=== PATIENT | female | born 1990 | race Caucasian/White ===

== ENCOUNTER → 2016-06-19 | Outpatient (CLI) | payer BC ==
[~2016-06-19] MED LIST: BUPR-79 PO; BUPRTAB51 PO; GADAVIST IV PRN; LEVO50TA PO; LIOT5TAB9 PO; ONDA4TAB7 SL
--- NOTE | 2016-06-19 15:59 | DIAGNOSTIC IMAGING REPORT ---
MRI OF THE BRAIN AND PITUITARY WITHOUT AND WITH GADOLINIUM CLINICAL HISTORY: Galactorrhea, migraine, cognitive impairment, numbness, tingling, memory loss. COMPARISON STUDY: Noncontrast head CT dated to 1010 FINDINGS: Imaging was performed in the sagittal axial and coronal planes. Imaging was performed before and after the administration of 5.2 cc of intravenous Gadavist. No intra or extra-axial mass lesions are visualized. Axial diffusion-weighted images reveal no evidence of acute or subacute infarction. Proton density, T2-weighted, and FLAIR images reveal no significant brachial signal abnormalities. Dynamic imaging was performed through the pituitary. The pituitary gland is of normal size. No chiasmatic abnormalities are visualized. The infundibulum is within the midline. This territory gland enhances in a uniform fashion. There are no findings to indicate a pituitary adenoma. Whole brain postcontrast images reveal no pathologically enhancing lesions. There is no evidence of hydrocephalus. IMPRESSION: Normal MRI of the brain and pituitary. Electronically signed by: Rodney Morgan M.D. 06/19/2016 3:58 PM Dictated Date/Time: 06/19/2016 3:53 PM
[2016-06-19 16:53] LABS: BASO % 0.5 %; BASO ABS # 0.03 K/uL (0-0.2); COMPLETE YES; EOS % 2.2 %; HEMATOCRIT 42.1 % (37-47); IG% 0.2 %; LYMPH % 31.8 %; LYMPH ABS # 1.84 K/uL (1.2-3.4); MEAN CELL VOLUME 88.4 fL (80-100); MEAN CORPUSCULAR HEMOGLOBIN 31.5 pg (25-34); MEAN CORPUSCULAR HGB CONC 35.6 g/dl (32-36); MEAN PLATELET VOLUME 10.9 fL (7.4-10.4); MONO % 5.4 %; NEUT % 59.9 %; PLATELET COUNT 251 K/uL (130-400); RED BLOOD COUNT 4.76 M/uL (4.2-5.4); WHITE BLOOD COUNT 5.78 K/uL (4.8-10.8)
[2016-06-19 17:07] LABS: ALT/SGPT 31 U/L (12-78); AST/SGOT 17 U/L (15-37); BLOOD UREA NITROGEN 12 mg/dl (7-18); BUN/CREATININE RATIO 12.5 (10-20); CALCIUM 9.7 mg/dl (8.5-10.1); CARBON DIOXIDE 28 mmol/L (21-32); CHLORIDE 102 mmol/L (98-107); CREATININE 0.93 mg/dl (0.60-1.20); GLUCOSE 78 mg/dl (70-99); POTASSIUM 3.7 mmol/L (3.5-5.1); SODIUM 136 mmol/L (136-145)
[2016-06-19 17:16] LABS: ALB/GLOB RATIO 1.3 (0.9-2); ALKALINE PHOSPHATASE 83 U/L (45-117); THYROID STIMULATING HORMONE 0.319 uIu/ml (0.300-4.500); TOTAL IRON BINDING CAPACITY 308 mcg/dl (250-450)
[2016-06-19 17:35] LABS: LYME DISEASE AB IGG NEG (NEG); LYME DISEASE AB IGM NEG (NEG)
[2016-06-23 10:29] LABS: ANTI-CENTROMERE AB <1.0 NEG AI (<1.0 NEG); ANTI-SS-A <1.0 NEG AI (<1.0 NEG); ANTI-SS-B <1.0 NEG AI (<1.0 NEG); DNA ds CRITHIDIA NEGATIVE (NEGATIVE); GAMMA GLOBULIN 1.1 G/DL (0.8-1.7); MICROSOMAL AB <1 IU/ML (<9); Sm Antibody <1.0 NEG AI (<1.0 NEG); TOTAL PROTEIN 7.7 G/DL (6.2-8.3)
--- NOTE | 2016-06-23 10:48 | CODING QUERY MEDICAL NECESSITY ---
SUPPORTING DIAGNOSIS NEEDED A supporting diagnosis is required for the test/procedure performed on this patient in order for us to be reimbursed by the patient's insurance. Please provide a supporting diagnosis for the following test/procedure listed below next to the test name along with your signature. *If there is no additional diagnosis for this patient that would support the following test/procedure please document that below next to the test/procedure. Test(s)/Procedure(s) that require a supporting diagnosis: DOS 06/19 * Vitamin D DIAGNOSIS: * Vitamin B6 DIAGNOSIS: * Iron DIAGNOSIS: Provider Signature: Date: Thank you Olinda Zaldivar Health Information Management Once completed, please kindly fax back to [phone] For questions please call [phone]
[2016-06-23 12:32] LABS: ANA TITER 1:40 TITER (<1:40)
[2016-06-24 15:34] LABS: VITAMIN B6** TC 926 14.9 ng/mL (2.1-21.7)
== END | disposition home or self-care (01) ==
LOC: C.MRIBC 12:54
PROVIDERS: ATTEND Psychiatry & Neurology Neurology
DX: O92.6 Galactorrhea (principal); Z3A.00 Weeks of gestation of pregnancy not specified; R41.89 Other symptoms and signs involving cognitive functions and awareness; G25.0 Essential tremor; G43.709 Chronic migraine without aura, not intractable, without status migrainosus; R20.0 Anesthesia of skin; R20.2 Paresthesia of skin; Q79.6 Ehlers-Danlos syndromes; F41.8 Other specified anxiety disorders; R53.1 Weakness; R53.82 Chronic fatigue, unspecified

== ENCOUNTER → 2016-09-21 | Outpatient (CLI) | payer BC ==
[~2016-09-21] MED LIST changes: -GADAVIST IV PRN
== END | disposition home or self-care (01) ==
LOC: C.LABBC 13:43
PROVIDERS: ATTEND Physician Assistant
DX: R77.8 Other specified abnormalities of plasma proteins (principal)